=== PATIENT | female | born 1950 | race Caucasian/White ===

== ENCOUNTER 2024-07-28 20:25 | Emergency (ER) | payer OTHER ==
[~2024-07-28] VITALS: Ht 170.2 cm; Wt 93.0 kg
[2024-07-28 21:00] VITALS: TEMP 98.7
[2024-07-28 21:16] VITALS: PULSE 107; RESP 20; O2SAT 95
[2024-07-28 21:23] LABS: Basophils # (auto) 0.1 10 ^3/uL (0-0.2); Basophils % (auto) 1.3 % (0.0-2.0); Eosinophils # (auto) 0.2 10 ^3/uL (0-0.8); Eosinophils % (auto) 2.2 % (0.0-7.0); Hematocrit 43.1 % (36.0-46.0); Hemoglobin 14.9 g/dL (12.2-16.2); Lymphocytes # (auto) 3.2 10 ^3/uL (0.4-5.4); Lymphocytes % (auto) 39.6 % (10.0-50.0); Mean Corpuscular Hemoglobin 29.7 pg (28.0-32.0); Mean Corpuscular Hgb Conc. 34.5 g/dL (32.0-36.0); Monocytes # (auto) 0.8 10 ^3/uL (0-1.3); Monocytes % (auto) 9.7 % (0.0-12.0); Neutrophils # (auto) 3.8 10 ^3/uL (1.6-8.6); Neutrophils % (auto) 47.2 % (37.0-80.0); Nucleated Red Blood Cells % 0.2 %; Platelet Count (auto) 294 10^3/uL (140-450); Red Blood Cells 5.01 10^6/uL (4.0-5.20); Red Cell Distribution Width 13.8 % (11.8-14.3)
[2024-07-28 21:40] LABS: Alanine Aminotransferase 33 U/L (7-40); Albumin 4.6 g/dL (3.2-4.8); Alkaline Phosphatase 51 U/L (46-116); Anion Gap 10 (5-15); Aspartate Aminotransferase 17 U/L (13-40); BUN/Creatinine Ratio 30.7 (10.0-20.0); Bilirubin, Total 0.4 mg/dL (0.2-1.0); Carbon Dioxide 27 mmol/L (20-31); Chloride 104 mmol/L (98-107); Glucose 102 mg/dL (74-106); Sodium 141 mmol/L (136-145); Total Protein 7.1 g/dL (5.7-8.2)
[2024-07-28] MEDS: SODIUM CHLORIDE 0.9% 1,000 ML IV ONE (21:53)
[2024-07-28 22:16] LABS: Urine Bacteria None Seen /hpf (None Seen)
[2024-07-28 22:26] LABS: INR 0.99 (0.9-1.15); Prothrombin Time 10.5 sec (9.3-11.8)
[2024-07-28 22:44] LABS: Blood Urea Nitrogen 27 mg/dL (9-23); Potassium 3.1 mmol/L (3.5-5.1)
[2024-07-28 22:47] LABS: Urine Blood Negative /uL (Negative); Urine Clarity Clear (Clear); Urine Color Colorless (Yellow); Urine Protein, UAD Negative (Negative); Urine Specific Gravity 1.009 (1.001-1.035); Urine Squamous Epithelial Cell FEW /hpf (<5); Urine Urobilinogen Normal (Negative); Urine WBC < 1 /HPF (0-5)
[2024-07-28] MEDS: POTASSIUM CHL 20 Meq TABLET PO ONE (23:07)
--- NOTE | 2024-07-28 23:10 | DVH ---
CHEST RADIOGRAPH Indication: cp Technique: Single frontal view of the chest was obtained COMPARISON: None FINDINGS: Lines and Tubes: None Lungs: Clear Pleura: No effusion. No pneumothorax. Cardiomediastinal contours: Unremarkable IMPRESSION: No acute disease.
--- NOTE | 2024-07-29 00:07 | ED.PDOC ---
History of Present Illness HPI Comments 74-year-old, obese female is brought in by ambulance from [facility] urgent care facility for AFib RVR. Patient's endorses on being found in AFib, with a heart rate in the 150s, while being evaluated at facility for sudden and unprovoked onset of chest tightness, palpitations, lightheadedness, dizziness, generalized weakness, and jaw pain, with no prior history, that began at 1830, this evening. Upon arrival to ED, patient reports other symptoms subsiding on their own after lasting an hour induration, with an exception of lightheadedness and dizziness upon standing. No prior history of AFib; mentions brother being diagnosed with condition, recently. Also informs on having a nonproductive cough past week. EN route, patient received 250 mL of normal saline bolus by EMS. Patient has no further associated symptoms reported at this time. Chief Complaint: Chest Pain Time Seen by MD: 21:30 Reviewed Notes: Nurses Notes, Hydrometer Tester Notes, Medications, Allergies Allergies: Coded Allergies: Doxycycline (Unverified Allergy, Unknown, 07/28/24) Information Source: Patient, Relative, Emergency Med Personnel Mode of Arrival: EMS Severity: Moderate Timing: Hours Duration: Hours Prehospital treatment: 12 Lead EKG, Analog Ic Design Architect Review of Systems: REVIEW OF SYSTEMS: No fever, no chills, or fatigue HEENT: No sore throat, no earache, no congestion, no neck pain. Cardiac: Lightheadedness. No chest pain. No palpitations. Lungs: No shortness of breath, no cough. GI: No nausea, no vomiting, no diarrhea, no constipation, no abdominal pain : No dysuria, frequency, or urgency. No hematuria. Musculoskeletal: No joint pain , no joint swelling, no extremity edema. Skin: No rash, no itching. Neuro: Dizziness. No headache, no weakness Vital Signs Vital Signs Date Time Temp Pulse Resp B/P (MAP) Pulse Ox O2 Delivery O2 Flow Rate FiO2 07/29/24 00:07 82 07/28/24 23:00 15 123/65 (84) 96 07/28/24 21:16 Room Air* 0 21 07/28/24 21:00 98.7 98.7 Physical Exam General: Awake, alert and oriented. No acute distress. Skin: Skin in warm, dry and intact. Appropriate color for ethnicity. HEENT: The head is normocephalic and atraumatic. Conjunctivae are clear without exudates or hemorrhage. Sclera is non-icteric. EOM are intact. No signs of nystagmus. Eyelids are normal in appearance without swelling or lesions. Oral mucosa is pink and moist Neck: The neck is supple with normal range of motion. No JVD. Cardiac: Rapid rate, regular rhythm. No murmurs, gallops, or rubs are auscul tated. Respiratory: No signs of respiratory distress. Lung sounds are clear in all lobes bilaterally without rales, rhonchi, or wheezes. Abdominal: Abdomen is soft, non-tender without distention. Bowel sounds are present and normoactive in all four quadrants. Extremities: Upper and lower extremities are atraumatic in appearance without deformity or edema. Neurological: The patient is awake, alert and oriented to person, place, and time with normal speech. Speech is clear. There is no facial asymmetry. Positive orthostatic dizziness. Psychiatric: Appropriate mood and affect. Good judgement and insight. Past Medical History PAST MEDICAL HISTORY: HTN, Thyroid (Hypothyroidism) Past Medical History (Other): Baby ASA use Surgical History: Denies all surgeries NON PROFIT DIRECTOR History: Denies all NON PROFIT DIRECTOR Hx Family History Family History: Family hx of heart andrea (AFib) Social History Smoker: Non-Smoker Alcohol: Denies ETOH Use Drugs: Denies Drug Use Lives In: Home Was a procedure done? Was a procedure done?: No EKG EKG #1: Pulse Rate (adult): 114 [place]: Normal Cardiac Rhythm: ST Block: None Hypertrophy: None ST: Normal EKG #2: Pulse Rate (adult): 101 [place]: Normal Cardiac Rhythm: ST Block: None Hypertrophy: None ST: Normal EKG #3: Pulse Rate (adult): 82 [place]: Normal Cardiac Rhythm: NSR Block: None Hypertrophy: None ST: Normal Differential Dx Considerations may include: Differential diagnoses considered include acute ischemic coronary syndrome, aortic dissection, cardiac tamponade, mediastinitis, pulmonary embolus, pneumothorax, tension pneumothorax, esophageal rupture, coronary artery vasospasm, myocarditis, pericarditis, pneumonia, pulmonary edema, esophageal tear, pancreatitis, aortic stenosis, dilated cardiomyopathy, hypertrophic cardiomyopathy, mitral valve prolapse, malignancy, pleuritis, pneumomediastinum, primary pulmonary hypertension, cholecystitis, esophageal spasm, esophagus, gastritis, GERD, peptic ulcer disease, costochondritis, fibromyalgia, rib fracture, herpes zoster, radicular syndromes, thoracic outlet syndrome, somatization. X-Ray, Labs, Meds, VS Vital Signs Date Time Temp Pulse Resp B/P (MAP) Pulse Ox O2 Delivery O2 Flow Rate FiO2 07/29/24 00:07 82 07/28/24 23:39 82 07/28/24 23:00 89 15 123/65 (84) 96 07/28/24 21:40 101 07/28/24 21:16 107 20 95 Room Air* 0 21 07/28/24 21:00 98.7 107 20 131/74 (93) 95 98.7 07/28/24 20:31 98.7 107 16 144/57 (86) 93 98.7 07/28/24 20:28 114 Lab Test 07/29/24 00:37 07/28/24 22:11 07/28/24 22:03 07/28/24 21:13 Range/Units Troponin I High Sensitivity Pending 23 22 </=34 ng/L Urine Color Colorless Yellow Urine Clarity Clear Clear Urine pH 6.0 5.0-9.0 Urine Specific Reading 1.009 1.001-1.035 Urine Protein Negative Negative Urine Ketones Negative Negative Urine Blood Negative Negative /uL Urine Nitrite Negative Negative Urine Bilirubin Negative Negative Urine Urobilinogen Normal Negative mg/dL Urine Leukocyte Esterase Negative Negative /uL Urine RBC <1 0 - 4 /hpf Urine Microscopic WBC < 1 0-5 /HPF Urine Squamous Epithelial Cells Few <5 /hpf Urine Bacteria None seen None Seen /hpf Urine Glucose Normal Normal mg/dL White Blood Count 8.0 4.4-10.8 10^3/uL Red Blood Count 5.01 4.0-5.20 10^6/uL Hemoglobin 14.9 12.2-16.2 g/dL Hematocrit 43.1 36.0-46.0 % Mean Corpuscular Volume 86.0 80.0-100.0 fL Mean Corpuscular Hemoglobin 29.7 28.0-32.0 pg Mean Corpuscular Hemoglobin Concent 34.5 32.0-36.0 g/dL Red Cell Distribution Width 13.8 11.8-14.3 % Platelet Count 294 140-450 10^3/uL Mean Platelet Volume 6.6 L 6.9-10.8 fL Neutrophils (%) (Auto) 47.2 37.0-80.0 % Lymphocytes (%) (Auto) 39.6 10.0-50.0 % Monocytes (%) (Auto) 9.7 0.0-12.0 % Eosinophils (%) (Auto) 2.2 0.0-7.0 % Basophils (%) (Auto) 1.3 0.0-2.0 % Neutrophils # (Auto) 3.8 1.6-8.6 10 ^3/uL Lymphocytes # (Auto) 3.2 0.4-5.4 10 ^3/uL Monocytes # (Auto) 0.8 0-1.3 10 ^3/uL Eosinophils # (Auto) 0.2 0-0.8 10 ^3/uL Basophils # (Auto) 0.1 0-0.2 10 ^3/uL Nucleated Red Blood Cells 0.2 % Prothrombin Time 10.5 9.3-11.8 sec Prothrombin Time INR 0.99 0.9-1.15 Sodium Level 141 136-145 mmol/L Potassium Level 3.1 L 3.5-5.1 mmol/L Chloride Level 104 98-107 mmol/L Carbon Dioxide Level 27 20-31 mmol/L Anion Gap 10 5-15 Blood Urea Nitrogen 27 H 9-23 mg/dL Creatinine 0.88 0.550-1.02 mg/dL Glomerular Filtration Rate Calc 70 >90 mL/min BUN/Creatinine Ratio 30.7 H 10.0-20.0 Serum Glucose 102 74-106 mg/dL Calcium Level 10.0 8.7-10.4 mg/dL Total Bilirubin 0.4 0.2-1.0 mg/dL Aspartate Amino Transferase (AST) 17 13-40 U/L Alanine Aminotransferase (ALT) 33 7-40 U/L Alkaline Phosphatase 51 46-116 U/L B-Type Natriuretic Peptide 12.67 0-100 pg/mL Total Protein 7.1 5.7-8.2 g/dL Albumin 4.6 3.2-4.8 g/dL Thyroid Stimulating Hormone (TSH) 2.59 0.55-4.78 uIU/mL Current Medications Medications (Trade) Dose Ordered Sig/Anusha Route Start Time Stop Time Status Last Admin Sodium Chloride 1,000 ml @ 1,000 mls/hr Q1H ONCE IV 07/28/24 22:00 07/28/24 22:59 DC 07/28/24 21:53 Potassium Chloride (Klor-Con Tablet) 40 meq ONCE ONCE PO 07/28/24 23:00 07/28/24 23:01 DC 07/28/24 23:[address] [address] Ph: [phone] DIAGNOSTIC IMAGING Diagnostic Imaging Report : [id number] Signed PATIENT: JAYDA ARELLANO ACCT: [id number] UNIT: [id number] : 1950 LOC: ER ROOM / BED: / AGE / SEX: 74 / F ADM STATUS: REG ER SERVICE 99 ORDERING PHYSICIAN: MARIA M CORADO MD PROCEDURE(s): CXR1 - CHEST XRAY 1 VIEW REASON: cp ORDER NUMBER(s): [id number], ACCESSION NUMBER(s): [id number] CHEST RADIOGRAPH Indication: cp Technique: Single frontal view of the chest was obtained COMPARISON: None FINDINGS: Lines and Tubes: None Lungs: Clear Pleura: No effusion. No pneumothorax. Cardiomediastinal contours: Unremarkable IMPRESSION: No acute disease. ATED BY: CLAUS SAMANIEGO MD DICTATED DATE/TIME: 07/28/242306 SIGNED BY: CLAUS SAMANIEGO MD SIGNED DATE/TIME: 07/28/242306 CC: Images Reviewed?: Images reviewed and evaluated by me (Independent interpretation of chest x-ray: No acute disease) Time of 1ST Reevaluation: 22:00 Reevaluation 1ST: Unchanged Patient Education/Counseling: Need For Follow Up Family Education/Counseling: Need For Follow Up Departure 1 Departure Time of Disposition: 00:40 Impression: Primary Impression: Chest pain Additional Impressions: Intermittent atrial fibrillation Hypokalemia Disposition: 01 HOME / SELF CARE / HOMELESS Condition: Stable Additional Instructions: ED DISCHARGE INSTRUCTIONS Instructions: Please read all instructions provided in this packet carefully. Continue to take baby aspirin daily prescribed. Although you have been discharged from the Emergency Department, this does not mean that you have a "clean bill of health". No definitive diagnosis for your symptoms has been made today. It is possible that you are in the process of developing a serious illness. This is why you must return to the ED without fail if any new or worsening symptoms (especially if your symptoms include chest pain, trouble breathing, abdominal pain, fever, headache, confusion, trouble seeing, or trouble walking) It is also very important that you see a primary care doctor within the next 1-3 days to follow up. Call [facility] for an appointment. Your primary care provider we will refer you to see Cardiology. If you are unable to get an appointment, return to the ED for re-evaluation. CHEST PAIN EDUCATION There are many things that can cause chest pain. Some are not serious and will get better on their own in a few days. But some kinds of chest pain need more te sting and treatment. Your doctor may have recommended a follow-up visit in the next few days. If you are not getting better, you may need more tests or treatment. Even though your doctor has released you, you still need to watch for any problems. The doctor carefully checked you, but sometimes problems can develop later. If you have new symptoms or if your symptoms do not get better, get medical care right away. If you have worse or different chest pain or pressure that lasts more than 5 minutes or you passed out (lost consciousness), call 911 or seek other emergency help right away. A medical visit is only one step in your treatment. Even if you feel better, you still need to do what your doctor recommends, such as going to all suggested follow-up appointments and taking medicines exactly as directed. This will help you recover and help prevent future problems. How can you care for yourself at home? Rest until you feel better. Take your medicine exactly as prescribed. Call your doctor if you think you are having a problem with your medicine. Do not drive after taking a prescription pain medicine. When should you call for help? Call 911 if: You passed out (lost consciousness). You have severe difficulty breathing. You have symptoms of a heart attack. These may include: Chest pain or pressure, or a strange feeling in your chest. Sweating. Shortness of breath. Nausea or vomiting. Pain, pressure, or a strange feeling in your back, neck, jaw, or upper belly or in one or both shoulders or arms. Lightheadedness or sudden weakness. A fast or irregular heartbeat. After you call 911, the bandmill operator may tell you to chew 1 adult-strength or 2 to 4 low-dose aspirin. Wait for an ambulance. Do not try to drive yourself. Call your doctor now or seek immediate medical care if: You have any trouble breathing. You have new or different chest pain. You are dizzy or lightheaded, or you feel like you may faint. Watch closely for changes in your health, and be sure to contact your doctor if you do not get better as expected. Current as of: October 18, 2023 Author: [employer] Staff? e-Prescriptions Potassium Chloride (Klor-Con M20) 20 Meq Tab 20 MEQ PO DAILY for 5 Days, #5 TAB Prov: MARIA M CORADO MD 07/29/24 Discharged With: Relative Comments 74-year-old female with new onset AFib. Patient has been in sinus rhythm during the ED observation. Patient's heart rate improved with IV fluids. She is asymptomatic at this time. Patient has had 3 negative troponins. 3 EKGs negative for atrial fibrillation or ischemia. Patient is requesting to be discharged home to follow up with her primary care provider. Patient already takes a baby aspirin daily. She is advised to continue this. The case was discussed with Dr. Alfaro of [place] who will arrange for prompt follow up with her PMD. Patient felt stable for discharge home. Extensive evaluation was performed in attempt to identify or rule out: (See differential diagnosis section) The following tests were ordered, and results were reviewed by me and discussed with patient: (See diagnostic results section) The following test were independently interpreted by me: EKG, chest x-ray I reviewed and agreed with the following test results read by other providers: Chest x-ray I reviewed the following notes from the pt's past medical encounters: N/A Additional information was gathered from interviewing the following independent historians: EMS, family at bedside Discussion of management or test interpretation with external physician/other qualified health manager primary care: @0040 Dr. Alfaro - Case # [id number] Addressed an acute or chronic illness that poses a threat to life or bodily function: AFib with RVR Drug therapy requiring intensive monitoring for toxicity: N/A Parenteral controlled substances: N/A Decision regarding elective major surgery with identified patient or procedure risk factors: N/A Decision regarding emergency major surgery: N/A Decision not to resuscitate or to de-escalate care because of poor prognosis: N/A Diagnosis or treatment significantly limited by social determinants of health: N/A Decision regarding hospitalization or escalation of hospital level of care: Risks and benefits of admission for further treatment of patient's condition was considered however due to patient's stable condition patient will be discharged to follow up closely or return to care for worsening of condition or inability to follow up. Critical Care Note Critical Care Time?: No Stability Stability form required: No Heart Score Heart Score: Heart Score Response (Comments) Value History N/A 0 EKG N/A 0 Age N/A 0 Risk Factors N/A 0 Troponin N/A 0 Total 0 I personally scribed for MARIA M CORADO MD ([email or web address]) on 07/29/24 at 00:07. Electronically submitted by Ray Thibodeaux ([email or web address]). MARIA M CORADO MD July 29, 2024 00:07
--- NOTE | 2024-07-29 00:19 | ECG ---
[facility] Test Date: 2024-07-28 Test Time: 20:28:06 Pat Name: JAYDA ARELLANO Department: ED Room: Gender: F Music Mixer: : 1950 Requested By: MARIA M CORADO Order Number: [id number] Reading MD: Taye Grayson Measurements Intervals [place] Rate: 114 P: 64 VT: 177 QRS: 56 QRSD: 83 T: 47 QT: 315 QTc: 434 Interpretive Statements Sinus tachycardia Probable left atrial enlargement Minimal ST depression, lateral leads Electronically Signed On 07-31-2024 12:44:15 PDT by Taye Grayson Please click the below link to view image of tracing.
--- NOTE | 2024-07-29 00:20 | ECG ---
[facility] Test Date: 2024-07-28 Test Time: 21:40:15 Pat Name: JAYDA ARELLANO Department: ED Room: Gender: F Data Warehouse Administrator: DAVID : 1950 Requested By: MARIA M CORADO Order Number: [id number] Reading MD: Taye Grayson Measurements Intervals [place] Rate: 101 P: 65 VT: 170 QRS: 34 QRSD: 89 T: 33 QT: 339 QTc: 440 Interpretive Statements Sinus tachycardia Probable left atrial enlargement Electronically Signed On 07-31-2024 12:44:17 PDT by Taye Grayson Please click the below link to view image of tracing.
[2024-07-29] MEDS ORDERED: POTA-220 PO (00:52)
[2024-07-29 01:01] VITALS: BP 120/65; PULSE 66; RESP 18; O2SAT 97
--- NOTE | 2024-07-29 13:33 | ECG ---
[facility] Test Date: 2024-07-28 Test Time: 23:36:17 Pat Name: JAYDA ARELLANO Department: ED Room: Gender: F Network Support Analyst: : 1950 Requested By: MARIA M CORADO Order Number: [id number] Reading MD: Taye Grayson Measurements Intervals [place] Rate: 82 P: 64 MA: 182 QRS: 35 QRSD: 86 T: 24 QT: 375 QTc: 438 Interpretive Statements Sinus rhythm Probable left atrial enlargement Electronically Signed On 07-31-2024 12:44:25 PDT by Taye Grayson Please click the below link to view image of tracing.
== END 2024-07-29 01:03 | disposition home or self-care (01) ==
LOC: EDBD 20:25 → ER 20:31
DX: I48.91 Unspecified atrial fibrillation (principal); E87.6 Hypokalemia; I10 Essential (primary) hypertension; E03.9 Hypothyroidism, unspecified; E66.9 Obesity, unspecified; Z88.1 Allergy status to other antibiotic agents
CPT/HCPCS: 36415; 71045; 80053; 81001; 83880; 84443; 84484; 85025; 85610; 93005; 96360; 99285; J7030